=== PATIENT | female | born 1995 | race Hispanic/Latino ===

== ENCOUNTER 2020-02-24 17:21 | Emergency (ER) | payer BC ==
[2020-02-24] MEDS ORDERED: MORPHINE 4 MG/1 ML INJ IV ONE (20:14)
[2020-02-24] MEDS ORDERED: SODIUM CHLORIDE 0.9% 1000 ML 1,000 ML IV ONE (20:14)
--- NOTE | 2020-02-24 20:16 | Emergency Department Report ---
HPI - General Chief Complaint: Abdominal Pain Time Seen by Provider: 02/24/20 20:00 - HPI HPI: 25-year-old female presents to the emergency department from home with complaint of some right lower quadrant abdominal pain since yesterday afternoon. The pat juan was using the restroom and twisted herself to wipe her bottom when she suddenly had very sharp right lower quadrant pain. That has since resolved but since that time she has been having cramping pain to that area, currently 3 out of 10. She denies any fever, nausea, vomiting, vaginal bleeding or discharge, dysuria, diarrhea or constipation. She took some Tylenol for symptoms with some transient relief. She has a past medical history of polycystic ovarian syndrome. She recently moved here from [place] and therefore does not have any local primary care physician or [facility]. ED Past Medical Hx - Past Medical History Previous Medical History?: Yes Additional medical history: PCOS - Surgical History Past Surgical History?: No - Social History Smoking Status: Never Smoker Substance Use Type: None ED Review of Systems ROS: Stated complaint: ABD PAIN Other details as noted in HPI Comment: All other systems reviewed and negative Constitutional: denies: chills, fever Eyes: denies: eye pain, vision change ENT: denies: ear pain, throat pain Respiratory: denies: cough, shortness of breath Cardiovascular: denies: chest pain, palpitations Gastrointestinal: abdominal pain. denies: nausea, vomiting, diarrhea, constipation Genitourinary: denies: dysuria, discharge Musculoskeletal: denies: back pain, arthralgia Skin: denies: rash, lesions Neurological: denies: headache, weakness Physical Exam - Physical Exam Vital Signs: Vital Signs 02/24/20 02/24/20 17:28 20:05 Temperature 97.9 F 97.6 F Pulse Rate 124 H 111 H Respiratory 20 20 Rate Blood Pressure 150/102 Blood Pressure 135/86 [Left] O2 Sat by Pulse 96 96 Oximetry Physical Exam: GENERAL: The patient is well-developed well-nourished. HENT: Normocephalic. Atraumatic. Patient has moist mucous membranes. EYES: Extraocular motions are intact. NECK: Supple. Trachea is midline. CHEST/LUNGS: Clear to auscultation. There is no respiratory distress noted. HEART/CARDIOVASCULAR: Regular. There is mild tachycardia. There is no murmur. ABDOMEN: Abdomen is soft. Mild lower abdominal tenderness to palpation. No guarding. Patient has normal bowel sounds. Obese habitus. SKIN: Skin is warm and dry. NEURO: The patient is awake, alert, and oriented. The patient is cooperative. The patient has no focal neurologic deficits. Normal speech. MUSCULOSKELETAL: There is no tenderness or deformity. There is no evidence of acute injury. ED Course Vital Signs 02/24/20 02/24/20 17:28 20:05 Temperature 97.9 F 97.6 F Pulse Rate 124 H 111 H Respiratory 20 20 Rate Blood Pressure 150/102 Blood Pressure 135/86 [Left] O2 Sat by Pulse 96 96 Oximetry ED Medical Decision Making - Lab Data Result diagrams: 02/24/20 20:27 02/24/20 20:27 - Radiology Data Radiology results: report reviewed, image reviewed interpreted by me: Abdominal x-ray shows nonspecific nonobstructive bowel gas CT abdomen pelvis w con INDICATION: Right lower quadrant pain. TECHNIQUE: All CT scans at this location are performed using the following dose modulation technique: Automated exposure control. CONTRAST: Omnipaque 300, 100 cc IV injection. COMPARISON: None available. CT ABDOMEN: The parenchymal organs are unremarkable in appearance. Negative for mass, fluid collection or inflammation. The bowel is not dilated or thickened. CT PELVIS: Negative for mass, fluid or inflammation. The appendix is normal. IMPRESSION: Unremarkable CT abdomen and pelvis with contrast. - Medical Decision Making This patient presents to the emergency department with lower abdominal cramping pain, mostly in the right lower quadrant. This is after the patient had some sharp right lower quadrant pain yesterday that has since resolved. Her vital signs have been stable throughout her ED course. Patient's labs are unremarkable including CBC, metabolic panel, urinalysis, and the patient is not currently . A CT scan of the abdomen and pelvis with IV contrast was completed that was read as unremarkable for any acute process. Patient was given a dose of IV analgesia and her pain level is down to 0 prior to discharge. She does appear safe for discharge home at this time and has been given referrals for primary care, gastroenterology and [facility]DER. She will return to the emergency department with any worsening of her symptoms or any acute distress. It is noted that the patient still had slightly elevated heart rate prior to discharge but the patient says this is chronic for her. She is currently keeping a vitals log including blood pressure and heart rate for a new primary care physician. Critical Care Time: No Critical care attestation.: If time is entered above; I have spent that time in minutes in the direct care of this critically ill patient, excluding procedure time. ED Disposition Clinical Impression: Right lower quadrant abdominal pain, History of polycystic ovaries Disposition: TO HOME OR SELFCARE Is pt being admited?: No Condition: Stable Instructions: Abdominal Pain (ED) Additional Instructions: Please follow-up with a primary care physician in the next few days. I have given you a referral for a local LIDDER, Dr. Wendie Watt, to follow-up regarding her history of polycystic ovarian syndrome. I have also given you a referral for a local hand folder, Dr. Rodolfo Watt, to follow-up regarding your abdominal pain. Return to the emergency department immediately with any worsening of your symptoms, or with any acute distress. Referrals: PRIMARY CARE, [Primary Care Provider] - 3-5 Days TRAVIS WRIGHT MD [Staff Physician] - 3-5 Days WENDIE WATT MD [Staff Physician] - 3-5 Days KIZZY WATT MD [Staff Physician] - 3-5 Days Time of Disposition: 23:12
[2020-02-24 20:32] LABS: Basophils % (Auto) 0.5 % (0.0-1.8); Eosinophils # (Auto) 0.2 K/mm3 (0.0-0.4); Hematocrit 39.7 % (30.3-42.9); Hemoglobin 13.4 gm/dl (10.1-14.3); Lymphocytes # (Auto) 2.5 K/mm3 (1.2-5.4); Lymphocytes % (Auto) 28.7 % (13.4-35.0); Mean Corpuscular HGB Conc 34 % (30-34); Mean Corpuscular Volume 85 fl (79-97); Monocytes # (Auto) 0.6 K/mm3 (0.0-0.8); Monocytes % (Auto) 6.6 % (0.0-7.3); Platelet Count 292 K/mm3 (140-440); Red Blood Count 4.67 M/mm3 (3.65-5.03); Red Cell Distribution Width 14.1 % (13.2-15.2)
[2020-02-24 20:54] LABS: Alanine Aminotransferase 16 units/L (7-56); Albumin 4.3 g/dL (3.9-5); BUN/Creatinine Ratio 15; Blood Urea Nitrogen 9 mg/dL (7-17); Calcium 9.9 mg/dL (8.4-10.2); Hemolysis Index 7
[2020-02-24 20:57] LABS: Bilirubin,Direct < 0.2 mg/dL (0-0.2)
[2020-02-24 21:07] LABS: Bacteria,Urine 3+ /HPF (Negative); Bilirubin,Urine NEG (Negative); Blood,Urine NEG (Negative); Color,Urine Yellow (Yellow); Mucus,Urine FEW /HPF; Protein,Urine <15 mg/dL mg/dL (Negative); Urobilinogen,Urine < 2.0 mg/dL (<2.0)
--- NOTE | 2020-02-24 21:24 | XRay Report ---
ABDOMEN 4 VIEW(S) INDICATION / CLINICAL INFORMATION: MAIN: Abd pain; Pt. c/o "ovary" pain to right side. . COMPARISON: None available. FINDINGS: TUBES / LINES: None. BOWEL GAS PATTERN: No significant abnormality. FREE AIR / EXTRALUMINAL GAS: None seen. ADDITIONAL FINDINGS: No significant additional findings. IMPRESSION: 1. No significant abnormality. Signer Name: Gage Forrest MD Signed: 02/24/2020 9:20 PM Workstation Name: [email or web address]
--- NOTE | 2020-02-24 23:03 | Cat Scan Report ---
CT abdomen pelvis w con INDICATION: Right lower quadrant pain. TECHNIQUE: All CT scans at this location are performed using the following dose modulation technique: Automated exposure control. CONTRAST: Omnipaque 300, 100 cc IV injection. COMPARISON: None available. CT ABDOMEN: The parenchymal organs are unremarkable in appearance. Negative for mass, fluid collectio n or inflammation. The bowel is not dilated or thickened. CT PELVIS: Negative for mass, fluid or inflammation. The appendix is normal. IMPRESSION: Unremarkable CT abdomen and pelvis with contrast. Signer Name: Andrei Thornton MD Signed: 02/24/2020 10:59 PM Workstation Name: [id number]
[2020-02-24 23:28] VITALS: BP 123/75
== END 2020-02-24 23:20 | disposition home or self-care (01) ==
LOC: ED 17:21
DX: R10.31 Right lower quadrant pain (principal); E28.2 Polycystic ovarian syndrome
CPT/HCPCS: 36415; 74019; 74177; 80048; 80076; 81001; 84703; 85025; 96374; 99285; J2270; J7030; Q9967